=== PATIENT | female | born 1975 | race Caucasian/White ===

== ENCOUNTER 2017-02-23 10:33 | Emergency (ER) | payer BC, OTHER ==
[2017-02-23 10:48] VITALS: BP 142/86
--- NOTE | 2017-02-23 11:15 | UC ---
Respiratory Complaint HPI - HPI Summary HPI Summary: 41 yo female with cough/wheezing x 1 week feverish low energy has used inhalers before - History of Current Complaint Chief Complaint: UCRespiratory Stated Complaint: COUGH CHEST CONGESTION Time Seen by Provider: 02/23/17 10:53 Hx Obtained From: Patient Onset/Duration: Gradual Onset, Lasting Days Timing: Constant Severity Initially: Mild Severity Currently: Moderate Pain Intensity: 2 Pain Scale Used: 0-10 Numeric Character: Cough: Productive Aggravating Factors: Nothing Alleviating Factors: Nothing Associated Signs And Symptoms: Positive: Fever - dai, Wheezing Related History: Similar Episode/Dx as: - bronchitis - Allergies/Home Medications Allergies/Adverse Reactions: Allergies Allergy/AdvReac Type Severity Reaction Status Date / Time Aspirin AdvReac GI Upset Verified 02/23/17 10:50 Diclofenac [From Cataflam] AdvReac GI Upset Verified 02/23/17 10:50 Erythromycin AdvReac GI Upset Verified 02/23/17 10:50 Ibuprofen AdvReac GI Upset Verified 02/23/17 10:50 PMH/Surg Hx/FS Hx/Imm Hx Previously Healthy: Yes Respiratory History: Bronchitis, Pneumonia - Surgical History Surgical History: Yes Surgery Procedure, Year, and Place: gallbladder, hysterectomy - Family History Known Family History: Positive: Hypertension Negative: Renal Disease, Respiratory Disease - Social History Alcohol Use: Rare Substance Use Type: None Smoking Status (MU): Never Smoked Tobacco Review of Systems Constitutional: Fever - dai, Fatigue Skin: Negative Eyes: Negative ENT: Negative Respiratory: Cough Cardiovascular: Negative Gastrointestinal: Negative Genitourinary: Negative Motor: Negative Neurovascular: Negative Musculoskeletal: Negative Neurological: Negative Psychological: Negative All Other Systems Reviewed And Are Negative: Yes Physical Exam Triage Information Reviewed: Yes Appearance: Well-Appearing, No Pain Distress, Well-Nourished Vital Signs: Initial Vital Signs Temp 98.6 F 02/23/17 10:42 Pulse 66 02/23/17 10:42 Resp 16 02/23/17 10:42 BP 142/86 02/23/17 10:42 Pulse Ox 100 02/23/17 10:42 Eyes: Positive: Conjunctiva Clear ENT: Positive: Hearing grossly normal. Negative: Nasal congestion, Nasal drainage, Trismus, Muffled/hoarse voice Neck: Positive: Supple, Nontender, No Lymphadenopathy Respiratory: Positive: No respiratory distress, No accessory muscle use, Wheezing - with forced expiration Cardiovascular: Positive: RRR, No Murmur Neurological: Positive: Alert Psychological Exam: Normal Skin Exam: Normal UC Diagnostic Evaluation - Laboratory O2 Sat by Pulse Oximetry: 100 - normal/not hypoxic Respiratory Course/Dx - Differential Dx/Diagnosis Provider Diagnoses: acute bronchitis Discharge - Discharge Plan Condition: Stable Disposition: HOME Prescriptions: Albuterol HFA INHALER* [Ventolin HFA Inhaler*] 2 puff INH QID #1 mdi Azithromycin TAB* [Zithromax TAB*] 250 mg PO DAILY #6 tab Prednisone [Deltasone] 40 mg PO DAILY #10 tab Patient Education Materials: Acute Bronchitis (ED) Referrals: Richie LEAHY,Migel Alatorre [Primary Care Provider] - 2 Weeks (for recheck BP) Additional Instructions: recheck for new or worsening symptom or if not better early next week
== END 2017-02-23 11:28 | disposition home or self-care (01) ==
LOC: UCCORT 10:33
DX: J20.9 Acute bronchitis, unspecified (principal); Z90.49 Acquired absence of other specified parts of digestive tract; Z90.710 Acquired absence of both cervix and uterus; Z88.6 Allergy status to analgesic agent; Z88.1 Allergy status to other antibiotic agents
CPT/HCPCS: 99202; G0463

== ENCOUNTER 2019-07-05 11:01 | Emergency (ER) | payer OTHER ==
[2019-07-05 12:23] VITALS: BP 135/69
--- NOTE | 2019-07-05 12:30 | UC ---
Hand/Wrist HPI - HPI Summary HPI Summary: 43 year old female who was trying to put up a large artificial [place] Tree one week ago when it started falling and she "wrenched" her right wrist. She has been "babying it" for the past week without improvement. - History Of Current Complaint Chief Complaint: UCUpperExtremity Stated Complaint: RT WRIST INJURY Time Seen by Provider: 07/05/19 12:09 Hx Obtained From: Patient ?: No Onset/Duration: Sudden Onset, Lasting Days Severity Initially: Moderate Severity Currently: Mild Pain Intensity: 5 Character Of Pain: Dull, Aching Aggravating Factor(s): Movement, Flexion, Extension Alleviating Factor(s): Rest Associated Signs And Symptoms: Positive: Negative - Allergies/Home Medications Allergies/Adverse Reactions: Allergies Allergy/AdvReac Type Severity Reaction Status Date / Time codeine Allergy Nausea And Verified 07/05/19 12:12 Vomiting MS Aspirin [Aspirin] AdvReac GI Upset Verified 07/05/19 12:12 MS Diclofenac [From Cataflam] AdvReac GI Upset Verified 07/05/19 12:12 MS Erythromycin AdvReac GI Upset Verified 07/05/19 12:12 [Erythromycin] MS Ibuprofen [Ibuprofen] AdvReac GI Upset Verified 07/05/19 12:12 PMH/Surg Hx/FS Hx/Imm Hx Previously Healthy: Yes - Surgical History Surgical History: Yes Surgery Procedure, Year, and Place: gallbladder, hysterectomy - Family History Known Family History: Positive: Hypertension Negative: Renal Disease, Respiratory Disease - Social History Lives: With Family Alcohol Use: None Substance Use Type: None Smoking Status (MU): Never Smoked Tobacco Review of Systems All Other Systems Reviewed And Are Negative: Yes Musculoskeletal: Positive: Other: - Mild Pain with movement of right wrist Is Patient Immunocompromised?: No Physical Exam Triage Information Reviewed: Yes Appearance: Well-Appearing, No Pain Distress, Well-Nourished Vital Signs: Initial Vital Signs Temp 98.1 F 07/05/19 12:14 Pulse 63 07/05/19 12:14 Resp 18 07/05/19 12:14 BP 135/69 07/05/19 12:14 Pulse Ox 100 07/05/19 12:14 Vital Signs Reviewed: Yes Musculoskeletal: Positive: Strength Intact, ROM Intact, Other: - Good periph pulses, neurosensation, cap refill. Full ROM but with discomfort distal ulnar area, no bruising, erythema, deformity or swelling. Scaphoid non-tender. Good finger strength with flexion/extension against resistance. Neurological Exam: Normal Psychological Exam: Normal Skin Exam: Normal Hand/Wrist Course/Dx - Course Course Of Treatment: Right wrist x-ray: negative. A cock up splint was applied by the nurse. Pt is comfortable here. - Differential Dx/Diagnosis Provider Diagnosis: Strain of right wrist Discharge ED - Sign-Out/Discharge Documenting (check all that apply): Patient Departure All imaging exams completed and their final reports reviewed: Yes - Discharge Plan Condition: Good Disposition: HOME Patient Education Materials: Wrist Sprain (ED) Referrals: Bang Ayon MD [Medical Doctor] - Jess Tyler PA [Primary Care Provider] - Additional Instructions: May apply heat to the sore area, Motrin every 8 hours with food. Follow up with the orthopedist in 4-5 days if no improvement. Use the wrist splint for comfort. - Billing Disposition and Condition Condition: GOOD Disposition: Home
== END 2019-07-05 13:06 | disposition home or self-care (01) ==
LOC: UCCORT 11:01
DX: S66.911A Strain of unspecified muscle, fascia and tendon at wrist and hand level, right hand, initial encounter (principal); X50.1XXA Overexertion from prolonged static or awkward postures, initial encounter; Y92.9 Unspecified place or not applicable; Z88.5 Allergy status to narcotic agent; Z88.6 Allergy status to analgesic agent; Z88.8 Allergy status to other drugs, medicaments and biological substances
CPT/HCPCS: 99212; G0463